=== PATIENT | male | born 1940 | race Caucasian/White ===

== ENCOUNTER 2018-10-26 15:01 | Emergency (ER) | payer MEDICARE, OTHER ==
[~2018-10-26] VITALS: Ht 188 cm; Wt 111.1 kg
[~2018-10-26 15:01] MED LIST: ALLOPURINOL300 MG PO; ATENOLOL25 MG PO; ATENOLOL50 MG PO; CHLORTHALIDONE25 MG PO; COLCHICINE0.6 M1 PO; COUMADIN2.5 MG PO; COUMADIN7.5 MG PO; DOXYCYCLINE MO100 MG PO; FISH OIL 1,0001 EAC1 PO; FUROSEMIDE40 MG PO; FUROSEMIDE80 MG PO; HYDROCHLOROTHIA25 MG PO; KEFLEX500 MG PO; KLOR-CON M2020 MEQ PO; LOSARTAN POTASS50 MG PO; LUTEIN6 MG PO; METRONIDAZOLE60 GM TOP; PERCOCET 7.5-31 EACH PO; POTASSIUM CHLO20 ME1 PO; VASOTEC20 MG PO; VITAMIN B-1250 MCG PO; VITAMIN B-12500 MCG PO; WARFARIN SODIUM5 MG PO
[2018-10-26] MEDS ORDERED: CHLORTHALIDONE25 MG PO (15:26)
--- NOTE | 2018-10-27 18:51 | EKG ---
[facility] [address] [facility] [place], [place] [address] Signed Atrial fibrillation Left axis deviation Incomplete left bundle branch block Abnormal ECG No previous ECGs available Confirmed by CODI VASQUEZ DO ([id number]) on 10/27/2018 6:51:19 PM Electronically Signed By: CODI VASQUEZ DO 10/27/181850 PATIENT NAME: PATO DELAROSA Electrocardiogram DATE OF : 40 PHYSICIAN: CODI VASQUEZ DO REPORT #: [id number] REPORT IS CONFIDENTIAL AND NOT TO BE RELEASED WITHOUT AUTHORIZATION
== END 2018-10-26 18:56 | disposition home or self-care (01) ==
LOC: ED 15:01
DX: R55 Syncope and collapse (principal); I10 Essential (primary) hypertension; I48.91 Unspecified atrial fibrillation; Z90.49 Acquired absence of other specified parts of digestive tract; Z79.899 Other long term (current) drug therapy; W19.XXXA Unspecified fall, initial encounter
CPT/HCPCS: 71045; 73030; 80053; 81001; 83605; 83735; 84484; 85025; 93005; 93010; 99285-25